=== PATIENT | female | born 1970 | race Caucasian/White ===

== ENCOUNTER 2019-01-01 21:30 | Inpatient (IN) | payer MEDICARE, MEDICAID ==
[~2019-01-01] VITALS: Ht 157.5 cm; Wt 70.0 kg
[2019-01-01 21:15] VITALS: BP 99/63
[2019-01-01] MEDS ORDERED: acetaminophen 325mg tablet PO PRN (23:40)
[2019-01-01] MEDS ORDERED: magnesium hydroxide 30ml (MOM) UD suspension PO PRN (23:40)
[2019-01-01] MEDS ORDERED: mag hydrox/Alum hydrox/simeth 30ml oral suspension PO PRN (23:40)
[2019-01-02] MEDS ORDERED: FENO145T38 PO (04:04)
[2019-01-02] MEDS ORDERED: GLIM1TAB46 PO (04:04)
[2019-01-02] MEDS ORDERED: LOSA50TA3 PO (04:04)
[2019-01-02] MEDS ORDERED: RISP2TAB3 PO (04:04)
[2019-01-02] MEDS ORDERED: ZIPR60CA2 PO (04:04)
[2019-01-02] MEDS ORDERED: CEPH-572 PO (04:07)
--- NOTE | 2019-01-02 04:25 | NUR ---
TUBERCULOSIS SPECIALIST NOTE: Legal hold: 5150 for GD. Dx: Psychosis NOS. ASSESSMENT: THIS SHIFT: Client was transferred from [facility] after presenting to [facility] behaving in a disorganized manner and making bizarre statements. The client was placed on a 5150 for GD. Client is homeless. It was reported that client has been off meds for three months. Client is 48 yo female who looks older than her stated age. She has poor hygiene, is disheveled with messy hair. Client was cooperative, but stated "I'm tired" and wanted to sleep. Client has a long mental health and substance use history (Meth and ETOH). Client stated, "I smoke cigarette butts when I can find them." She has been smoking for "ten years". Client ambulated to the unit at 2100 accompanied by [employer] ice cream truck driver. She changed into green scrubs and her belongings were inventoried by Con Roberts Clients clothing was washed and will be returned to client in am. The client is a poor historian and verbal answers conflicted with the medical record. After having a sandwich and chips client fell asleep. Client awoke once and briefly walked the hallway. She returned to bed and fell asleep without difficulty. Client was admitted for Psychosis NOS. She has a UTI which is being treated with Keflex 500 mg Tab PO TID. She did not c/o pain during urination or frequency. S/I, H/I: Responds to internal stimuli. A/VH: Hears voices. Delusional. Sleep: No issues during shift. (Awoke once) ADL's: Independent, needs prompting. Group attendance: N/A. Were meds taken: Ordered for 01/02/2019. Any med S/E: N/A. MENTAL STATUS EXAM: Appearance: Poor hygiene, body odor, messy hair, disheveled. Needs shower. Eye contact: Poor eye contact. Behavior: Tired and hugry. Speech: Clear. Mood: Stable. Affect: Blunted. Thought process: Non-linear, confused. Cognition: A/O X 3. Insight: Poor Judgment: Poor INTERVENTIONS: PRN's used: None. Therapeutic interventions: 1:1 therapeutic assessment, active listening, medication education, administration and monitoring for effects, Q15 min safety checks, therapeutic milieu and group therapy. [place] to unit. Restraints/seclusion/emergency medication: N/A. Justification of Continued Inpatient Treatment: Client needs to have meds adjusted and encouraged to be med compliant. Discover barriers to med compliance. Client is disorganized and unable to obtain food and housing. Client is homeless at this time but my be eligible to move into [facility] upon discharge.
--- NOTE | 2019-01-02 07:23 | NUR ---
Nursing Note: Pt's AM blood glucose not fasting level, pt drinking hot chocolate. Will continue to monitor.
[2019-01-02 07:38] VITALS: BP 118/75
[2019-01-02] MEDS: fenofibrate 145mg tablet PO SCH (07:56)
[2019-01-02] MEDS: glimepiride 1 MG tablet PO SCH (07:56)
[2019-01-02] MEDS: cephalexin 250mg capsule PO SCH ×2 (07:56→15:46)
[2019-01-02] MEDS ORDERED: losartan 50mg tablet PO SCH (08:00)
[2019-01-02] MEDS ORDERED: ziprasidone 20mg capsule PO SCH (08:00)
[2019-01-02] MEDS: losartan 50mg tablet PO SCH (08:01)
[2019-01-02] MEDS ORDERED: tuberculin, purif. prot. deriv. 5 units/0.1ml ID ONE (10:00)
--- NOTE | 2019-01-02 11:33 | NUR ---
DM consult: Pt hx dementia A1C 7.2 and not appropriate for ed at this time. Addendum: 01/02/19 at [address] Amended: Links added. Addendum: 01/02/19 at [address] Correction: DM consult: Pt admit w/ psychosis A1C 7.2 and not appropriate for ed at this time.
--- NOTE | 2019-01-02 11:59 | NUR ---
RN Progress Note: Legal hold: 5150 for GD. Dx: Psychosis NOS. Report received from ELSY Leger with use of SBAR. Why they are here: Client was transferred from [facility] after presenting to [facility] behaving in a disorganized manner and making bizarre statements. The client was placed on a 5150 for GD. Client is homeless. It was reported that client has been off meds for three months. Assessment: Client was sleeping at change of shift. Reports she slept well. Compliant with medication administration. Cooperative with assessment. Pt denies depression, anxiety, SI, and A/VH. Her appearance was disheveled and odorous. She napped during the morning and did not attend the AM group. Pt took shower in the AM. S/I, H/I: Pt denies A/VH: Pt denies Sleep: Napped ADL's: Independent, needs prompting. Group attendance: No AM group Were meds taken: Yes Any med S/E: N/A. MENTAL STATUS EXAM: Appearance: Disheveled, poor hygiene, odorous Eye contact: Indirect Behavior: Cooperative Speech: Normal rate and rhythm Mood: Appropriate Affect: Blunted. Thought process: Non-linear Cognition: A/O X 3. Insight: Poor Judgment: Poor INTERVENTIONS: PRN's used: None. Therapeutic interventions: 1:1 therapeutic assessment, active listening, medication education, administration and monitoring for effects, Q15 min safety checks, therapeutic milieu and group therapy. Restraints/seclusion/emergency medication: N/A. Justification of Continued Inpatient Treatment: Continued therapeutic support and medication management needed to provide stabilization, prevent decompensation, and decrease risk to patient and readmittance. Client is unable to formulate a plan for food, clothing and care home.
--- NOTE | 2019-01-02 12:29 | NUR ---
Nursing Note: PPD held at this time, pt states she [facility] [place]. The PPD site on her arm is circled and not induration is noted. Will seek further clarification on the pt's recent PPD test.
--- NOTE | 2019-01-02 16:59 | NUR ---
Aimee ALVAREZ reported that another pt came to her to tell her that pt had used marker on her face. Pt had used a red marker on her lips and stated, "It's lipstick." Markers removed from community room.
[2019-01-02 20:00] VITALS: BP 136/89
[2019-01-02] MEDS: risperiDONE 2mg tablet PO SCH (21:28)
[2019-01-02] MEDS: docusate sod 100mg capsule PO SCH (21:29)
[2019-01-02] MEDS: lactobacillus rhamnosus 10,000 MMU CELLS/CAPSULE PO SCH (21:29)
[2019-01-02] MEDS: acetaminophen 325mg tablet PO PRN (21:49)
[2019-01-03] MEDS: cephalexin 250mg capsule PO SCH ×3 (00:21→16:12)
--- NOTE | 2019-01-03 03:00 | NUR ---
RN Progress Note: Legal hold: 5150 for GD. Dx: Psychosis NOS. Report received from PADMINI Hanks with use of SBAR. Why they are here: Client was transferred from [facility] after presenting to U behaving in a disorganized manner and making bizarre statements. The client was placed on a 5150 for GD. Client is homeless. It was reported that client has been off meds for three months. Assessment What happened this shift: Pt was in group room at shift change. Pt was compliant with medication administration. Pt is A&O x2 was able to give name and , when asked two separate times if she knew where she was her was response was I am at the [facility] [place]. Pt knew she was in for an evaluation, but could not elaborate as to why "my social media intern knows." Pt s answers to questions are minimal. Pt denies depression, anxiety, SI and A/VH, but appeared to be responding to internal stimuli. This physician underwriter observed the pt looking up and laughing randomly. Pt c/o of low back pain and Tylenol was administered. HS blood glucose was 103. Pt was observed dancing around the group room by herself. S/I, H/I: None reported or observed A/VH: None reported or observed Sleep: See sleep assessment notation ADL's: Independent, needs prompting. Group attendance: control analyst, no group Were meds taken: Pt medication compliant Any med S/E: None reported or observed MENTAL STATUS EXAM: Appearance: Disheveled, poor hygiene, odorous Eye contact: Indirect Behavior: Cooperative Speech: Clear, monotone, minimal Mood: Pt reports "good" Affect: Flat Thought process: Non-linear Cognition: A/O X 2. Insight: Poor Judgment: Poor INTERVENTIONS: PRN's used: Tylenol Therapeutic interventions: 1:1 therapeutic assessment, active listening, medication education, administration and monitoring for effects, Q15 min safety checks, therapeutic milieu and group therapy. Restraints/seclusion/emergency medication: N/A Justification of Continued Inpatient Treatment: Continued therapeutic support and medication management needed to provide stabilization, prevent decompensation, and decrease risk to patient and readmittance. Client is unable to formulate a plan for food, clothing and usp.
[2019-01-03] MEDS: lactobacillus rhamnosus 10,000 MMU CELLS/CAPSULE PO SCH ×2 (07:39→21:55)
[2019-01-03] MEDS: glimepiride 1 MG tablet PO SCH (07:39)
[2019-01-03] MEDS: docusate sod 100mg capsule PO SCH ×2 (07:39→21:55)
[2019-01-03] MEDS: losartan 50mg tablet PO SCH (07:39)
[2019-01-03] MEDS: ziprasidone 20mg capsule PO SCH (07:40)
[2019-01-03 07:53] VITALS: BP 111/76
[2019-01-03] MEDS ORDERED: glimepiride 1 MG tablet PO SCH (08:00)
[2019-01-03] MEDS ORDERED: fenofibrate 145mg tablet PO SCH (08:00)
[2019-01-03] MEDS ORDERED: losartan 50mg tablet PO SCH (08:00)
[2019-01-03 08:19] LABS: CHOL/HDL RATIO 2.9 (0.00-4.99); CHOLESTEROL 146 MG/DL (0-200); HDL CHOLESTEROL 51 MG/DL (35-60); LDL CHOLESTEROL 78 MG/DL (50-100); TRIGLYCERIDES 83 MG/DL (20-135)
[2019-01-03] MEDS: fenofibrate 145mg tablet PO SCH (09:38)
--- NOTE | 2019-01-03 16:09 | NUR ---
NURSING PROGRESS NOTE: Legal hold: 5150 for GD. Report received from PADMINI Coleman with use of SBAR. Why they are here: Client was transferred from [facility] after presenting to [facility] behaving in a disorganized manner and making bizarre statements. The client was placed on a 5150 for GD. Client is homeless. It was reported that client has been off meds for three months. Assessment: What happened this shift: Patient appears to be sleeping at start of shift, eyes closed, RR even and unlabored. 1:1 assessment at bedside. Pt reports she is tired. She attended am group. Up for meals and snacks. S/I, H/I: Pt denies A/VH: Pt denies Sleep: Napped ADL's: independent, needs prompting. Group attendance: Yes Were meds taken: Yes Any med S/E: N/A. MENTAL STATUS EXAM: Appearance: Disheveled, did not shower today Eye contact: Indirect Behavior: Cooperative Speech: Normal rate and rhythm Mood: Appropriate Affect: Blunted. Thought process: disorganized Cognition: A/O X 3. Insight: Poor Judgment: Poor INTERVENTIONS: PRN's used: N/A Therapeutic interventions: 1:1 therapeutic communication and listening, administered medicine w/education and monitored for side effects, encouraged pt to shower and care for ADL's, Q 15 min monitoring for safety check. Restraints/seclusion/emergency medication: N/A. Justification of Continued Inpatient Treatment: Continued therapeutic support and medication management needed to provide stabilization, prevent decompensation, and decrease risk to patient and readmittance. Client is unable to formulate a plan for food, clothing and mcfp.
[2019-01-03 19:28] VITALS: BP 105/63
[2019-01-03] MEDS: risperiDONE 2mg tablet PO SCH (21:55)
[2019-01-04] MEDS: cephalexin 250mg capsule PO SCH ×2 (00:55→08:20)
[2019-01-04] MEDS: acetaminophen 325mg tablet PO PRN (01:14)
--- NOTE | 2019-01-04 02:57 | NUR ---
NURSING PROGRESS NOTE: Legal hold: 5150 for GD. Report received from PADMINI Alvarado with use of SBAR. Why they are here: Client was transferred from [facility] after presenting to U behaving in a disorganized manner and making bizarre statements. The client was placed on a 5150 for GD. Client is homeless. It was reported that client has been off meds for three months. Assessment: What happened this shift: Pt wandered in fernandez at start of shift. Came to group room for snack. Pleasant and cooperative. S/I, H/I: Pt denies A/VH: Pt denies Sleep: asleep at this time. ADL's: independent, needs prompting. Group attendance: Yes Were meds taken: Yes Any med S/E: N/A. MENTAL STATUS EXAM: Appearance: Disheveled, did not shower today. Bahman circles around eyes with felt pen. Eye contact: Indirect Behavior: Cooperative Speech: Normal rate and rhythm Mood: Appropriate Affect: Blunted. Thought process: disorganized Cognition: A/O X 3. Insight: Poor Judgment: Poor INTERVENTIONS: Therapeutic interventions: 1:1 therapeutic communication and listening, administered medicine w/education and monitored for side effects, encouraged pt to shower and care for ADL's, Q 15 min monitoring for safety check. PRN's used: Tylenol for back pain. Restraints/seclusion/emergency medication: N/A. Justification of Continued Inpatient Treatment: Continued therapeutic support and medication management needed to provide stabilization, prevent decompensation, and decrease risk to patient and readmittance. Client is unable to formulate a plan for food, clothing and correction.
[2019-01-04 07:39] VITALS: BP 110/70
[2019-01-04] MEDS: lactobacillus rhamnosus 10,000 MMU CELLS/CAPSULE PO SCH ×2 (08:20→20:26)
[2019-01-04] MEDS: ziprasidone 20mg capsule PO SCH (08:20)
[2019-01-04] MEDS: fenofibrate 145mg tablet PO SCH (08:20)
[2019-01-04] MEDS: glimepiride 1 MG tablet PO SCH (08:20)
[2019-01-04] MEDS: docusate sod 100mg capsule PO SCH ×2 (08:20→20:26)
[2019-01-04] MEDS: losartan 50mg tablet PO SCH (08:20)
--- NOTE | 2019-01-04 13:08 | NUR ---
NURSING PROGRESS NOTE: Legal hold: 5150 for GD. Report received from PADMINI Stephens with use of SBAR. Why they are here: Client was transferred from [facility] after presenting to [facility] behaving in a disorganized manner and making bizarre statements. The client was placed on a 5150 for GD. Client is homeless. It was reported that client has been off meds for three months. Assessment: What happened this shift: Pt in bed at start of shift. Eyes closed laying on back with her eyes closed. RR even and unlabored. Pt later seen drinking hot chocolate prior to having accu check done. This nurse provided education on her disease. Pt agreed to come to the nurses prior to getting her hot chocolate or coffee in the mornings for now on. Pt able to verbalize understanding of the importance of checking her blood sugar before meals. S/I, H/I: Pt denies A/VH: Pt denies Sleep: Naps in between activities. ADL's: independent, needs prompting. Group attendance: Yes Were meds taken: Yes Any med S/E: N/A. MENTAL STATUS EXAM: Appearance: Showered in the AM Eye contact: Indirect Behavior: Cooperative Speech: Normal rate and rhythm Mood: Appropriate Affect: Blunted. Thought process: disorganized Cognition: A/O X 3. Insight: Poor Judgment: Poor INTERVENTIONS: Therapeutic interventions: 1:1 therapeutic communication and listening, administered medicine w/education and monitored for side effects, encouraged pt to shower and care for ADL's, Q 15 min monitoring for safety check. PRN's used: N/A Restraints/seclusion/emergency medication: N/A. Justification of Continued Inpatient Treatment: Continued therapeutic support and medication management needed to provide stabilization, prevent decompensation, and decrease risk to patient and readmittance. Client is unable to formulate a plan for food, clothing and correction.
[2019-01-04] MEDS: cephalexin 500mg capsule PO SCH ×2 (16:39→23:53)
[2019-01-04 20:00] VITALS: BP 113/68
[2019-01-04] MEDS: risperiDONE 2mg tablet PO SCH (20:26)
[2019-01-04 22:07] VITALS: BP 113/68
--- NOTE | 2019-01-05 00:17 | NUR ---
NURSING PROGRESS NOTE: Legal hold: 5250 for GD Report received from PADMINI Tompkins with use of SBAR. Why they are here: Client was transferred from [facility] after presenting to U behaving in a disorganized manner and making bizarre statements. The client was placed on a 5150 for GD. Client is homeless. It was reported that client has been off meds for three months. Assessment: What happened this shift: Pt in bed at start of shift, stating, "yeah" when RN asked if she was tired. Pt minimal in responses, only offering "yeah" or "no". Pt denies AH but when signing the 5250 and the RN explained the court hearing process, the pt began to mutter under her breath "Now they want her to go to court, when she was going to get out", "Yes, they want her to go now. Yes that is how it is, I see". Rn inquired as to who she was talking to but the pt just blankly looked at RN then let out a burst of maniacal laughter; she stopped then got up and proceeded to group room. Pt was compliant with medications and assessment. She paced the halls x1 around 2315 then returned to bed to sleep. S/I, H/I: Denies A/VH: Denies, but observed to be responding to internal stimuli Sleep: See Charting ADL's: Independent, needs prompting Group attendance: Y - HS Snack Were meds taken: Y Any med S/E: None reported, None observed MENTAL STATUS EXAM: Appearance: Hair disheveled, wearing unit green scrubs and nonskid socks Eye contact: Intermittent Behavior: Pt sleeping or resting except to attend snack group; x1 pace the halls before returning to room Speech: Abrupt, Clear Mood: "Yeah" when asked how she is feeling Affect: Flat Thought process: Disorganized Cognition: A/O X 2 ( No to time and place) Insight: Poor Judgment: Poor INTERVENTIONS: Therapeutic interventions: 1:1 therapeutic communication and listening, administered medicine w/education and monitored for side effects, encouraged pt to shower and care for ADL's, Q 15 min monitoring for safety check. PRN's used: N/A Restraints/seclusion/emergency medication: N/A. Justification of Continued Inpatient Treatment: Continued therapeutic support and medication management needed to provide stabilization, prevent decompensation, and decrease risk to patient and readmittance. Client is unable to formulate a plan for food, clothing and mcfp. Addendum: 01/05/19 at 0344 by Nakia Marc RN Pt pacing the halls, stopping intermittently to inquire about her clothes. She returns to her room to sleep.
[2019-01-05] MEDS: glimepiride 1 MG tablet PO SCH (08:04)
[2019-01-05] MEDS: docusate sod 100mg capsule PO SCH ×2 (08:04→20:33)
[2019-01-05] MEDS: losartan 50mg tablet PO SCH (08:04)
[2019-01-05] MEDS: ziprasidone 20mg capsule PO SCH (08:04)
[2019-01-05] MEDS: lactobacillus rhamnosus 10,000 MMU CELLS/CAPSULE PO SCH ×2 (08:04→20:33)
[2019-01-05] MEDS: cephalexin 500mg capsule PO SCH ×2 (08:04→16:15)
[2019-01-05] MEDS: fenofibrate 145mg tablet PO SCH (08:05)
[2019-01-05 08:19] VITALS: BP 112/74
--- NOTE | 2019-01-05 15:43 | NUR ---
NURSING PROGRESS NOTE: Legal hold: 5250 for GD. Report received from PADMINI Yee with use of SBAR. Why they are here: Client was transferred from [facility] after presenting to [facility] behaving in a disorganized manner and making bizarre statements. The client was placed on a 5150 for GD. Client is homeless. It was reported that client has been off meds for three months. Assessment: What happened this shift: Pt sleeping at change of shift. Compliant with medication administration. Cooperative with 1:1 assessment. Pt denied depression, anxiety, and SI. When asked about auditiory hallucinations, she said, "Just what's all around." Blood glucose monitored before meals, pt had hot chocolate prior to 1200 glucose check. Pt did not attend groups. S/I, H/I: Denies A/VH: Denied, but then said, "Just what's all around." Sleep: Napped ADL's: independent, with prompting. Group attendance: No Were meds taken: Yes Any med S/E: N/A. MENTAL STATUS EXAM: Appearance: disheveled Eye contact: Indirect Behavior: Pleasant and cooperative Speech: Normal rate and rhythm Mood: Calm Affect: Blunted Thought process: Disorganized Cognition: A/O X 3. Insight: Poor Judgment: Poor PRN's used: N/A Therapeutic interventions: Provided 1:1 therapeutic communication and active listening, administered medicine w/education and monitored for side effects, encouraged attention to ADL's, Q 15 min monitoring for safety check, maintained therapeutic milieu. Restraints/seclusion/emergency medication: N/A. Justification of Continued Inpatient Treatment: Continued therapeutic support and medication management needed to provide stabilization, prevent decompensation, and decrease risk to patient and readmittance. Client is unable to formulate a plan for food, clothing and retirement.
[2019-01-05] MEDS ORDERED: paliperidone palmitate inj 234 MG/1.5 ML SYRINGE IM ONE (19:05)
[2019-01-05] MEDS: risperiDONE 2mg tablet PO SCH (20:33)
[2019-01-05] MEDS: traZODone 50mg tablet PO SCH (20:34)
[2019-01-05 20:35] VITALS: BP 107/64
--- NOTE | 2019-01-05 23:05 | NUR ---
NURSING PROGRESS NOTE: Legal hold: 5250 for GD. Report received from PADMINI Mayo with use of SBAR. Why they are here: Client was transferred from [facility] after presenting to U behaving in a disorganized manner and making bizarre statements. The client was placed on a 5150 for GD. Client is homeless. It was reported that client has been off meds for three months. Assessment: What happened this shift: Pt sleeping at change of shift; slept most of shift except to pace the halls a few times. Invega IM injection administered at 1999. Pt compliant with all medications. Bathroom cleaned by rouge presser due to Pt soiling around the toilet. Pt continues to deny all symtpoms althought she appears to be responding to internal stimuli. S/I, H/I: Denies A/VH: Denied, but appears to respond to internal stimuli Sleep: See Charting ADL's: Independent, with prompting. Group attendance: Y - HS Snack Were meds taken: Y Any med S/E: None reported, None observed MENTAL STATUS EXAM: Appearance: disheveled but clean, wearing green unit scrubs and nonskid socks Eye contact: Indirect Behavior: Cooperative; slept in bed most of shift with occasional pacing of the halls Speech: Abrupt Mood: Calm Affect: Flat Thought process: Disorganized Cognition: A/O X 3. Insight: Poor Judgment: Poor PRN's used: Trazadone 100mg for sleep Therapeutic interventions: Provided 1:1 therapeutic communication and active listening, administered medicine w/education and monitored for side effects, encouraged attention to ADL's, Q 15 min monitoring for safety check, maintained therapeutic milieu. Restraints/seclusion/emergency medication: N/A. Justification of Continued Inpatient Treatment: Continued therapeutic support and medication management needed to provide stabilization, prevent decompensation, and decrease risk to patient and readmittance. Client is unable to formulate a plan for food, clothing and senior living.
[2019-01-06 07:38] VITALS: BP 100/60
[2019-01-06] MEDS: losartan 50mg tablet PO SCH (08:03)
[2019-01-06] MEDS: lactobacillus rhamnosus 10,000 MMU CELLS/CAPSULE PO SCH ×2 (08:03→21:07)
[2019-01-06] MEDS: cephalexin 500mg capsule PO SCH ×3 (08:03→16:54)
[2019-01-06] MEDS: fenofibrate 145mg tablet PO SCH (08:03)
[2019-01-06] MEDS: ziprasidone 20mg capsule PO SCH (08:03)
[2019-01-06] MEDS: docusate sod 100mg capsule PO SCH ×2 (08:03→21:07)
[2019-01-06] MEDS: glimepiride 1 MG tablet PO SCH (08:03)
--- NOTE | 2019-01-06 17:25 | NUR ---
NURSING PROGRESS NOTE: Legal hold: 5250 for GD. Report received from PADMINI Rogers with use of SBAR. Why they are here: Client was transferred from [facility] after presenting to U behaving in a disorganized manner and making bizarre statements. The client was placed on a 5150 for GD. Client is homeless. It was reported that client has been off meds for three months. Assessment: What happened this shift: Pt sleeping at change of shift. Compliant with medication administration. Cooperative with 1:1 assessment. Pt denied depression, anxiety, and SI. When asked about auditiory hallucinations, she said, "Just what's all around." Blood glucose monitored before meals, pt had hot chocolate prior to 1200 glucose check. Pt did not attend groups. Pt is confused and disoriented as well as talking to unseen others. S/I, H/I: Denies A/VH: Denied, but then said, "Just what's all around." Sleep: Napped ADL's: independent, with prompting. Group attendance: No Were meds taken: Yes Any med S/E: N/A. MENTAL STATUS EXAM: Appearance: disheveled Eye contact: Indirect Behavior: Pleasant and cooperative Speech: Normal rate and rhythm Mood: Calm Affect: Blunted Thought process: Disorganized Cognition: A/O X 3. Insight: Poor Judgment: Poor PRN's used: N/A Therapeutic interventions: Provided 1:1 therapeutic communication and active listening, administered medicine w/education and monitored for side effects, encouraged attention to ADL's, Q 15 min monitoring for safety check, maintained therapeutic milieu. Restraints/seclusion/emergency medication: N/A. Justification of Continued Inpatient Treatment: Pt requires continual therapeutic support and medication management needed to provide stabilization, prevent decompensation, and decrease risk to patient and readmittance. Client is unable to formulate a plan for food, clothing and halfway.
[2019-01-06 20:00] VITALS: BP 118/68
[2019-01-06] MEDS ORDERED: risperiDONE 2mg tablet PO SCH (21:00)
[2019-01-06] MEDS: traZODone 50mg tablet PO SCH (21:07)
[2019-01-07] MEDS: cephalexin 500mg capsule PO SCH ×3 (00:12→16:31)
--- NOTE | 2019-01-07 00:28 | NUR ---
NURSING PROGRESS NOTE: Legal hold: 5250 for GD. Report received from PADMINI Tompkins with use of SBAR. Why they are here: Client was transferred from [facility] after presenting to U behaving in a disorganized manner and making bizarre statements. The client was placed on a 5150 for GD. Client is homeless. It was reported that client has been off meds for three months. Assessment: What happened this shift: Pt sleeping at change of shift; slept most of shift except to pace the halls a few times. She periodically gets up from her bed soaks her hair with water, then either paces the fernandez or lays back down. She is moved to nugent new room this evening, and enjoys the window in her new room to look out. She is compliant with all her evening medications, and when asked denies any side effects to her medications. S/I, H/I: Denies A/VH: Denied, but appears to respond to internal stimuli Sleep: Currently sleeping, see sleep assessment ADL's: Independent, with prompting. Group attendance: No HS group this shift Were meds taken: Y Any med S/E: None reported, None observed MENTAL STATUS EXAM: Appearance: Disheveled, unkempt, used markers as make up. Eye contact: Indirect Behavior: Cooperative; slept in bed most of shift with occasional pacing of the halls Speech: Normal volume, rhythm Mood: Calm Affect: Flat Thought process: Disorganized Cognition: A/O X 3. Insight: Poor Judgment: Poor PRN's used: Trazadone 100mg for sleep Therapeutic interventions: Provided 1:1 therapeutic communication and active listening, administered medicine w/education and monitored for side effects, encouraged attention to ADL's, Q 15 min monitoring for safety check, maintained therapeutic milieu. Restraints/seclusion/emergency medication: N/A. Justification of Continued Inpatient Treatment: Continued therapeutic support and medication management needed to provide stabilization, prevent decompensation, and decrease risk to patient and readmittance. Client is unable to formulate a plan for food, clothing and senior care.
[2019-01-07 07:55] VITALS: BP 104/65
[2019-01-07] MEDS: lactobacillus rhamnosus 10,000 MMU CELLS/CAPSULE PO SCH ×2 (08:09→20:53)
[2019-01-07] MEDS: docusate sod 100mg capsule PO SCH ×2 (08:09→20:53)
[2019-01-07] MEDS: losartan 50mg tablet PO SCH (08:09)
[2019-01-07] MEDS: glimepiride 1 MG tablet PO SCH (08:09)
[2019-01-07] MEDS: ziprasidone 20mg capsule PO SCH (08:10)
[2019-01-07] MEDS: fenofibrate 145mg tablet PO SCH (08:10)
--- NOTE | 2019-01-07 12:10 | NUR ---
Initial: Pt admit to U for psychosis. Per physical assessment pt A/O x2, DM ed remains not appropriate at this time. Pt currently on a CHO controlled diet with documented PO intake 100% meeting nutrient needs. LBM 01/06. No edema or wounds. No nutrition diagnosis at this time. Will continue to follow. Recommendations: 1) Continue with CHO controlled diet 2) Wt per rx Addendum: 01/07/19 at [address] Amended: Links added.
--- NOTE | 2019-01-07 12:54 | NUR ---
NURSING PROGRESS NOTE: Legal hold: 5250 for GD. Report received from PADMINI Sexton with use of SBAR. Why they are here: Client was transferred from [facility] after presenting to [facility] behaving in a disorganized manner and making bizarre statements. The client was placed on a 5150 for GD. Client is homeless. It was reported that client has been off meds for three months. Assessment: What happened this shift: The patient was awake at change of shift, up in group room talking with others. Denies suicidal thoughts or hallucinations. Confused and disoriented. Cannot state why she is here. She would like to wear her own clothes but does not know what has happened to her clothes or how she got here. She gives detailed "beauty" advice to nurse. She is pleasantly confused and cooperative, eating well and med compliant. S/I, H/I: Denies A/VH: Denied, but appears to respond to internal stimuli Sleep: Naps ADL's: Independent, with prompting. Group attendance: Yes Were meds taken: Yes Any med S/E: None reported, None observed MENTAL STATUS EXAM: Appearance: Disheveled, unkempt, used markers as make up. Eye contact: Direct Behavior: Cooperative Speech: Normal volume, rhythm Mood: Calm Affect: Smiling Thought process: Disorganized Cognition: Alert Insight: Poor Judgment: Poor PRN's used: None Therapeutic interventions: Provided 1:1 therapeutic communication and active listening, administered medicine w/education and monitored for side effects, encouraged attention to ADL's, Q 15 min monitoring for safety check, maintained therapeutic milieu. Restraints/seclusion/emergency medication: N/A. Justification of Continued Inpatient Treatment: Continued therapeutic support and medication management needed to provide stabilization, prevent decompensation, and decrease risk to patient and readmittance. Client is unable to formulate a plan for food, clothing and custodial.
[2019-01-07 19:00] VITALS: BP 93/58
[2019-01-07] MEDS: traZODone 50mg tablet PO SCH (20:53)
[2019-01-07] MEDS: risperiDONE 2mg tablet PO SCH (20:53)
--- NOTE | 2019-01-07 23:26 | NUR ---
NURSING PROGRESS NOTE: Legal hold: 5250 for GD. Report received from PADMINI Stockton with use of SBAR. Why they are here: Client was transferred from [facility] after presenting to [facility] behaving in a disorganized manner and making bizarre statements. The client was placed on a 5150 for GD. Client is homeless. It was reported that client has been off meds for three months. Assessment: What happened this shift: Pt isolates in her room majority of shift. She answers questions when spoken to but does not converse freely. She avoids eye contact and stares past group underwriter. When asked how her day was she responds," good, I went to group, art group." When asked if she was depressed or suicidal she responds, "nope." After her HS medications she paces the halls a few times with a pillow case on her head that she wore like a hat. S/I, H/I: Denies A/VH: Denies Sleep: see sleep assessment notation ADL's: Independent, with prompting. Group attendance: No HS group this shift Were meds taken: Yes Any med S/E: None reported, None observed MENTAL STATUS EXAM: Appearance: Disheveled, unkempt Eye contact: avoids Behavior: occasional pacing of the halls, isolates in room Speech: flat, sparse Mood: congruent w/ affect Affect: Flat Thought process: Disorganized Cognition: A/O X 3. Insight: Poor Judgment: Poor PRN's used: Trazadone 100mg for sleep Therapeutic interventions: Provided 1:1 therapeutic communication and active listening, administered medicine w/education and monitored for side effects, encouraged attention to ADL's, Q 15 min monitoring for safety check, maintained therapeutic milieu. Restraints/seclusion/emergency medication: N/A. Justification of Continued Inpatient Treatment: Continued therapeutic support and medication management needed to provide stabilization, prevent decompensation, and decrease risk to patient and readmittance. Client is unable to formulate a plan for food, clothing and assisted.
[2019-01-08] MEDS: cephalexin 500mg capsule PO SCH ×3 (00:09→16:31)
[2019-01-08 08:00] VITALS: BP 106/65
[2019-01-08] MEDS: ziprasidone 20mg capsule PO SCH (08:22)
[2019-01-08] MEDS: docusate sod 100mg capsule PO SCH ×2 (08:22→20:40)
[2019-01-08] MEDS: lactobacillus rhamnosus 10,000 MMU CELLS/CAPSULE PO SCH ×2 (08:22→20:40)
[2019-01-08] MEDS: fenofibrate 145mg tablet PO SCH (08:22)
[2019-01-08] MEDS: glimepiride 1 MG tablet PO SCH (08:23)
[2019-01-08] MEDS: losartan 50mg tablet PO SCH (08:23)
--- NOTE | 2019-01-08 08:44 | NUR ---
DISCHARGE PLANNING: Phoned pt's Shirt Presser, Sam Yanira, to update him on pt's progress and notify him that pt's doctor believes she maybe ready for interview w/ Marivel Smith on Friday01/11/19. Invited him to CB to discuss in more detail. Jenny Herndon, ACSW
--- NOTE | 2019-01-08 15:11 | NUR ---
NURSING PROGRESS NOTE: Legal hold: 5250 for GD. Report received from PADMINI Sexton with use of SBAR. Why they are here: Client was transferred from [facility] after presenting to [facility] behaving in a disorganized manner and making bizarre statements. The client was placed on a 5150 for GD. Client is homeless. It was reported that client has been off meds for three months. Assessment: What happened this shift: The patient was awake at change of shift, up in group room talking with others. Denies suicidal thoughts or hallucinations. Confused and disoriented. Cannot state why she is here. During court hearing yesterday stated she still has an apartment and a place to "go home to in [place]", she still today does not understand she is homeless. Naps frequently during the day, Attends groups and meals and is pleasantly confused and cooperative, eating well and med compliant. S/I, H/I: Denies A/VH: Denied, but appears to respond to internal stimuli Sleep: Naps ADL's: Independent, with prompting. Group attendance: Yes Were meds taken: Yes Any med S/E: None reported, None observed MENTAL STATUS EXAM: Appearance: Disheveled, unkempt, used markers as make up. Eye contact: Direct Behavior: Cooperative Speech: Normal volume, rhythm Mood: Calm Affect: Smiling Thought process: Disorganized Cognition: Alert Insight: Poor Judgment: Poor PRN's used: None Therapeutic interventions: Provided 1:1 therapeutic communication and active listening, administered medicine w/education and monitored for side effects, encouraged attention to ADL's, Q 15 min monitoring for safety check, maintained therapeutic milieu. Restraints/seclusion/emergency medication: N/A. Justification of Continued Inpatient Treatment: Continued therapeutic support and medication management needed to provide stabilization, prevent decompensation, and decrease risk to patient and readmittance. Client is unable to formulate a plan for food, clothing and fpc.
[2019-01-08] MEDS: risperiDONE 2mg tablet PO SCH (20:40)
[2019-01-08] MEDS: traZODone 50mg tablet PO SCH (20:40)
[2019-01-08 20:47] VITALS: BP 83/44
[2019-01-08 20:49] VITALS: BP 97/55
[2019-01-09] MEDS: cephalexin 500mg capsule PO SCH ×4 (00:18→23:43)
--- NOTE | 2019-01-09 00:21 | NUR ---
NURSING PROGRESS NOTE: Legal hold: 5250 for GD. Report received from PADMINI Stockton with use of SBAR. Why they are here: Client was transferred from [facility] after presenting to U behaving in a disorganized manner and making bizarre statements. The client was placed on a 5150 for GD. Client is homeless. It was reported that client has been off meds for three months. Assessment: What happened this shift: Pt walks about the unit and watches TV in the rec room with peers. She requests clothing from the clothing closet because she has minimal, and has been wearing green scrubs. She picks out shirts and 2 pants/shorts and changes into them immediately. Her affect is very flat throughout most activities, eating, watching Tv, or talking. She generally keeps the same expression, not happy or sad. She denies feeling suicidal or depressed. S/I, H/I: Denies A/VH: Denies Sleep: see sleep assessment notation ADL's: Independent, with prompting. Group attendance: No HS group this shift Were meds taken: Yes Any med S/E: None reported, None observed MENTAL STATUS EXAM: Appearance: changed into clothing she picked out, hair is still unkempt, remnants of marker on her face from trying to put on eyeliner. Eye contact: fair Behavior: occasionally walks the halls and watches TV in rec room Speech: flat, sparse Mood: congruent w/ affect Affect: Flat Thought process: Disorganized Cognition: A/O X 3. Insight: Poor Judgment: Poor PRN's used: Trazadone 100mg for sleep Therapeutic interventions: Provided 1:1 therapeutic communication and active listening, administered medicine w/education and monitored for side effects, encouraged attention to ADL's, Q 15 min monitoring for safety check, maintained therapeutic milieu. Restraints/seclusion/emergency medication: N/A. Justification of Continued Inpatient Treatment: Continued therapeutic support and medication management needed to provide stabilization, prevent decompensation, and decrease risk to patient and readmittance. Client is unable to formulate a plan for food, clothing and correction.
[2019-01-09 08:00] VITALS: BP 104/69
[2019-01-09] MEDS: lactobacillus rhamnosus 10,000 MMU CELLS/CAPSULE PO SCH ×2 (08:09→20:57)
[2019-01-09] MEDS: docusate sod 100mg capsule PO SCH ×2 (08:09→20:57)
[2019-01-09] MEDS: ziprasidone 20mg capsule PO SCH (08:10)
[2019-01-09] MEDS: glimepiride 1 MG tablet PO SCH (08:10)
[2019-01-09] MEDS: losartan 50mg tablet PO SCH (08:10)
[2019-01-09] MEDS: fenofibrate 145mg tablet PO SCH (08:10)
--- NOTE | 2019-01-09 12:45 | NUR ---
NURSING PROGRESS NOTE: Legal hold: 5250 for GD. Report received from PADMINI Brown with use of SBAR. Why they are here: Client was transferred from [facility] after presenting to [facility] behaving in a disorganized manner and making bizarre statements. The client was placed on a 5150 for GD. Client is homeless. It was reported that client has been off meds for three months. Assessment: What happened this shift: The patient was awake at change of shift, up in group room talking with others. Denies suicidal thoughts or hallucinations. Confused and disoriented. States she is here to "get better" so "I can go home." Naps frequently during the day. Excited to have lipstick donated to her and used tube appropriately only at the lips and was smiling and happy about having it. Denies suicidal thoughts or hallucinations. Attends groups and meals and is pleasantly confused and cooperative, eating well and med compliant. S/I, H/I: Denies A/VH: Denied, but appears to respond to internal stimuli Sleep: Naps ADL's: Independent, with prompting. Group attendance: Yes Were meds taken: Yes Any med S/E: None reported, None observed MENTAL STATUS EXAM: Appearance: disheveled Eye contact: Direct Behavior: Cooperative Speech: Normal volume, rhythm Mood: Calm Affect: Smiling Thought process: Disorganized Cognition: Alert Insight: Poor Judgment: Poor PRN's used: None Therapeutic interventions: Provided 1:1 therapeutic communication and active listening, administered medicine w/education and monitored for side effects, encouraged attention to ADL's, Q 15 min monitoring for safety check, maintained therapeutic milieu. Restraints/seclusion/emergency medication: N/A. Justification of Continued Inpatient Treatment: Continued therapeutic support and medication management needed to provide stabilization, prevent decompensation, and decrease risk to patient and readmittance. Client is unable to formulate a plan for food, clothing and penitentiary.
[2019-01-09] MEDS ORDERED: paliperidone palmitate inj 234 MG/1.5 ML SYRINGE IM ONE (15:00)
[2019-01-09 20:00] VITALS: BP 109/69
[2019-01-09] MEDS: traZODone 50mg tablet PO SCH (20:57)
[2019-01-09] MEDS: risperiDONE 2mg tablet PO SCH (20:57)
--- NOTE | 2019-01-09 23:09 | NUR ---
NURSING PROGRESS NOTE: Legal hold: 5250 for GD. Report received from PADMINI Stockton with use of SBAR. Why they are here: Client was transferred from [facility] after presenting to U behaving in a disorganized manner and making bizarre statements. The client was placed on a 5150 for GD. Client is homeless. It was reported that client has been off meds for three months. Assessment: What happened this shift: Pt walks about the unit with a flat expression or watches TV. She has lipstick on her lips, and around her eyes like eye shadow. When asked how her day was she responded, "pretty good." She states "there's not a whole lot to do in here." Adjuster Leader asks what she likes to do outside of the hospital. "I like to watch TV and movies, hang out with friends and my ." She denies any suicidal ideation, AH/ VH. S/I, H/I: Denies A/VH: Denies Sleep: see sleep assessment notation ADL's: Independent, with prompting. Group attendance: No HS group this shift Were meds taken: Yes Any med S/E: None reported, None observed MENTAL STATUS EXAM: Appearance: changed into clothing she picked out, hair is still unkempt Eye contact: fair Behavior: occasionally walks the halls and watches TV in rec room Speech: flat, sparse Mood: congruent w/ affect Affect: Flat Thought process: Disorganized Cognition: A/O X 3. Insight: Poor Judgment: Poor PRN's used: Trazadone 100mg for sleep Therapeutic interventions: Provided 1:1 therapeutic communication and active listening, administered medicine w/education and monitored for side effects, encouraged attention to ADL's, Q 15 min monitoring for safety check, maintained therapeutic milieu. Restraints/seclusion/emergency medication: N/A. Justification of Continued Inpatient Treatment: Continued therapeutic support and medication management needed to provide stabilization, prevent decompensation, and decrease risk to patient and readmittance. Client is unable to formulate a plan for food, clothing and senior living.
[2019-01-10] MEDS: docusate sod 100mg capsule PO SCH ×2 (07:58→20:19)
[2019-01-10] MEDS: cephalexin 500mg capsule PO SCH ×2 (07:58→18:40)
[2019-01-10] MEDS: lactobacillus rhamnosus 10,000 MMU CELLS/CAPSULE PO SCH ×2 (07:58→20:19)
[2019-01-10] MEDS: fenofibrate 145mg tablet PO SCH (07:58)
[2019-01-10] MEDS: glimepiride 1 MG tablet PO SCH (07:59)
[2019-01-10 08:00] VITALS: BP 90/56
[2019-01-10] MEDS ORDERED: ziprasidone 20mg capsule PO SCH (08:00)
[2019-01-10] MEDS: losartan 50mg tablet PO SCH (08:00)
[2019-01-10] MEDS: ziprasidone 20mg capsule PO SCH (08:08)
--- NOTE | 2019-01-10 13:50 | NUR ---
NURSING PROGRESS NOTE: Legal hold: 5250 for GD. Report received from ELSY Brown with use of SBAR. Why they are here: Client was transferred from [facility] after presenting to U behaving in a disorganized manner and making bizarre statements. The client was placed on a 5150 for GD. Client is homeless. It was reported that client has been off meds for three months. Assessment: What happened this shift: Upon assuming care of pt she was awake watching television pleasantly with other patients. Pt had lipstick on her lips, cheeks, eye lids, and eyebrows, and wearing unusual modes of dress with martin pants underneath martin shorts. Pt was agreeable with our 1:1 assessment and had a very pleasant demeanor during most of our interactions throughout the day. Denies any SI or HI and was cooperative with staff and group attendance. Pt spent most of the day with other patients and walking around, she was very excited about her lipstick and put more on her face throughout the day. Pt had a difficult time staying on track with topic of conversation and appeared at times to be internally preoccupied. She also asked me multiple times if I liked her makeup and would laughed inappropriately at times during our conversations. S/I, H/I: Denies A/VH: Denied, but appears to respond to internal stimuli Sleep: none ADL's: Independent, with prompting. Group attendance: Yes Were meds taken: Yes Any med S/E: None reported, None observed MENTAL STATUS EXAM: Appearance: disheveled Eye contact: Direct Behavior: Cooperative Speech: Normal volume, rhythm Mood: Calm Affect: Smiling Thought process: Disorganized Cognition: Alert Insight: Poor Judgment: Poor PRN's used: None Therapeutic interventions: Provided 1:1 therapeutic communication and active listening, administered medicine w/education and monitored for side effects, encouraged attention to ADL's, Q 15 min monitoring for safety check, maintained therapeutic milieu. Restraints/seclusion/emergency medication: N/A. Justification of Continued Inpatient Treatment: Continued therapeutic support and medication management needed to provide stabilization, prevent decompensation, and decrease risk to patient and readmittance. Client is unable to formulate a plan for food, clothing and chcf.
[2019-01-10 19:51] VITALS: BP 98/58
[2019-01-10] MEDS: traZODone 50mg tablet PO SCH (20:18)
[2019-01-10] MEDS: risperiDONE 2mg tablet PO SCH (20:19)
--- NOTE | 2019-01-10 20:57 | NUR ---
NURSING PROGRESS NOTE: Legal hold: 5250 for GD. Report received from PADMINI White with use of SBAR. Why they are here: Client was transferred from [facility] after presenting to [facility] behaving in a disorganized manner and making bizarre statements. The client was placed on a 5150 for GD. Client is homeless. It was reported that client has been off meds for three months. Assessment: What happened this shift: Pt is asleep at shift change, but woke up shortly after want sat in the community room staring at a wall, with no expression. She had lipstick on her lips, around her eyes, and in her hair. She is wearing a pair of jeans with a pair of martin shorts overtop. Pt declines a shower. She denies any suicidal ideation, AH/ VH. S/I, H/I: Denies A/VH: Denies Sleep: see sleep assessment notation ADL's: Independent, with prompting. Group attendance: No HS group this shift Were meds taken: Yes Any med S/E: None reported, None observed MENTAL STATUS EXAM: Appearance: She had lipstick on her lips, around her eyes, and in her hair. She is wearing a pair of jeans with a pair of martin shorts overtop Eye contact: fair Behavior: occasionally walks the halls Speech: flat, sparse Mood: congruent w/ affect Affect: Flat Thought process: Disorganized Cognition: A/O X 3. Insight: Poor Judgment: Poor PRN's used: Trazadone 100mg for sleep Therapeutic interventions: Provided 1:1 therapeutic communication and active listening, administered medicine w/education and monitored for side effects, encouraged attention to ADL's, Q 15 min monitoring for safety check, maintained therapeutic milieu. Restraints/seclusion/emergency medication: N/A. Justification of Continued Inpatient Treatment: Continued therapeutic support and medication management needed to provide stabilization, prevent decompensation, and decrease risk to patient and readmittance. Client is unable to formulate a plan for food, clothing and longterm.
[2019-01-11] MEDS: cephalexin 500mg capsule PO SCH ×2 (01:34→07:32)
[2019-01-11] MEDS: docusate sod 100mg capsule PO SCH ×2 (07:32→21:20)
[2019-01-11] MEDS: glimepiride 1 MG tablet PO SCH (07:32)
[2019-01-11] MEDS: lactobacillus rhamnosus 10,000 MMU CELLS/CAPSULE PO SCH ×2 (07:33→21:20)
[2019-01-11] MEDS: ziprasidone 20mg capsule PO SCH (07:33)
[2019-01-11] MEDS: losartan 50mg tablet PO SCH (07:33)
[2019-01-11 08:00] VITALS: BP 101/65
[2019-01-11] MEDS: fenofibrate 145mg tablet PO SCH (08:04)
--- NOTE | 2019-01-11 12:57 | NUR ---
1:1 DISCHARGE PLANNING SW attempted to contact [facility] at [phone] regarding pt case management services and [facility] interview status. EDVIN made TC to [facility] at [phone], to learn of interview status. EDVIN provided w/ Parisa Schuler [facility] cell number at [phone]. EDVIN made TC to [facility] at [phone], who reports there are no available beds at [facility] and no referral was made. EDVIN contacted [facility] at [phone] (Alex), who reports [facility] is the only unit to make referrals to [facility] and Sam would have been unable to per policy. Alex read through discharge binder for notes regarding pt updates and discharge planning, reporting discharge planning did not occur through [facility], as required. Maria Guadalupe sent ELIZABETH for [facility] and [facility] discharge planning. EDVIN Cowart and Iza. KEVIN Duarte
--- NOTE | 2019-01-11 14:46 | NUR ---
Addition to note: EDVIN Cowart and EDVIN Couch completed ELIZABETH with pt, then faxed and emailed scanned copy of ELIZABETH to TCT. EDVIN Cowart informed [facility] that pt would likely be ready for discharge w/in 24 hours so [facility] placement was of urgent status. KEVIN Duarte
[2019-01-11] MEDS ORDERED: paliperidone palmitate 156 mg/ml inj.**IM only IM ONE (17:05)
--- NOTE | 2019-01-11 17:55 | NUR ---
NURSING PROGRESS NOTE: Legal hold: 5250 for GD. Report received from PADMINI White with use of SBAR. Why they are here: Client was transferred from [facility] after presenting to U behaving in a disorganized manner and making bizarre statements. The client was placed on a 5150 for GD. Client is homeless. It was reported that client has been off meds for three months. Assessment: What happened this shift: Pt. up at beginning of shift. Pt. cooperative and pleasent, pt. at breakfast and took medications. BG was 130 this AM. Pt. reports that she is waiting to see if she will get accepted to a homeless usp. Pt. attends groups, but is isolative to room during the day time. Pt. states she feels tired. Pt. eats all meals and snacks. Pt. denies SI/HI, A/V H. RN contacted by Pharmacy reporting that pt. recieved x2 Cowart sustaina injections, one on the and another on the , pt. shows no signs & symptoms of toxicity except for fatigue, RN informed MICHELL Lin, will continue to monitor. S/I, H/I: Denies A/VH: Denies Sleep: see sleep assessment notation ADL's: Independent, with prompting. Group attendance: Yes Were meds taken: Yes Any med S/E: Denies. MENTAL STATUS EXAM: Appearance: She had lipstick on her lips, around her eyes. Pt. is wearing shorts over her head. Eye contact: fair Behavior: occasionally walks the halls Speech: flat, sparse Mood: congruent w/ affect Affect: Flat Thought process: Disorganized, thought blocking. Thought content: Perseverates on her discharge. Cognition: A/O X 3. Insight: Poor Judgment: Poor PRN's used: N Therapeutic interventions: Provided 1:1 therapeutic communication and active listening, administered medicine w/education and monitored for side effects, encouraged attention to ADL's, Q 15 min monitoring for safety check, maintained therapeutic milieu. Restraints/seclusion/emergency medication: N/A. Justification of Continued Inpatient Treatment: Continued therapeutic support and medication management needed to provide stabilization, prevent decompensation, and decrease risk to patient and readmittance. Client is unable to formulate a plan for food, clothing and usp.
[2019-01-11 19:00] VITALS: BP 95/52
[2019-01-11] MEDS: risperiDONE 2mg tablet PO SCH (21:20)
[2019-01-11] MEDS: traZODone 50mg tablet PO SCH (21:20)
--- NOTE | 2019-01-12 00:47 | NUR ---
NURSING PROGRESS NOTE: Legal hold: 5250 for GD. Report received from PADMINI Stockton with use of SBAR. Why they are here: Client was transferred from [facility] after presenting to U behaving in a disorganized manner and making bizarre statements. The client was placed on a 5150 for GD. Client is homeless. It was reported that client has been off meds for three months. Assessment: What happened this shift: Pt watches TV in the community room and eats snacks. She is pleasant and med compliant. She denies any suicidal ideation, AH/ VH. S/I, H/I: Denies A/VH: Denies Sleep: see sleep assessment notation ADL's: Independent, with prompting. Group attendance: No HS group this shift Were meds taken: Yes Any med S/E: None reported, None observed MENTAL STATUS EXAM: Appearance: changed into clothing she picked out, hair is still unkempt Eye contact: fair Behavior: occasionally walks the halls and watches TV in rec room Speech: flat, sparse Mood: congruent w/ affect Affect: Flat Thought process: Disorganized Cognition: A/O X 3. Insight: Poor Judgment: Poor PRN's used: Trazadone 100mg for sleep Therapeutic interventions: Provided 1:1 therapeutic communication and active listening, administered medicine w/education and monitored for side effects, encouraged attention to ADL's, Q 15 min monitoring for safety check, maintained therapeutic milieu. Restraints/seclusion/emergency medication: N/A. Justification of Continued Inpatient Treatment: Continued therapeutic support and medication management needed to provide stabilization, prevent decompensation, and decrease risk to patient and readmittance. Client is unable to formulate a plan for food, clothing and [facility].
[2019-01-12 07:29] VITALS: BP 95/52
--- NOTE | 2019-01-12 08:06 | NUR ---
DISCHARGE PLANNING: Silver from [employer] [facility] phoned and LM that pt can return to the [facility]. Return call to Silver discuss pt D/C and transportation, LM. LING Chau Addendum: 01/12/19 at 0903 by Jenny FLORES Spoke w/ Saray @ [employer] [facility] and she will will work w/ us to arrange D/C -transportation when we have a definitive D/C date. LING Chau Addendum: 01/12/19 at 1052 by Jenny FLORES Sam, Pt's comp field case manager from [facility] returned my call from Friday, RONNIE inquiring about pt's upcoming D/C. I ALIZE and RONNIE, LING Chau Addendum: 01/12/19 at 1136 by Jenny Herndon SS Phoned Saray [employer] [facility] to update pt will D/C tomorrow 01/13/2019. Transportation is arranged and they will P/U pt at 1:30PM. They requested prescriptions be sent w/pt and recycle driver will stop to P/U. LING Chau Addendum: 01/12/19 at 1502 by Jenny FLORES MEDICATION UPDATE: Sam requested medications be called into [facility] @ [phone]. Confirmed update w/Saray [employer] [facility]. LING Chau
[2019-01-12] MEDS: fenofibrate 145mg tablet PO SCH (08:47)
[2019-01-12] MEDS: glimepiride 1 MG tablet PO SCH (08:47)
[2019-01-12] MEDS: lactobacillus rhamnosus 10,000 MMU CELLS/CAPSULE PO SCH ×2 (08:47→20:59)
[2019-01-12] MEDS: losartan 50mg tablet PO SCH (08:47)
[2019-01-12] MEDS: docusate sod 100mg capsule PO SCH ×2 (08:47→20:59)
[2019-01-12] MEDS: ziprasidone 20mg capsule PO SCH (08:47)
--- NOTE | 2019-01-12 16:43 | NUR ---
NURSING PROGRESS NOTE: Legal hold: 5250 for GD. Report received from Ken RN with use of SBAR. Why they are here: Client was transferred from [facility] after presenting to [facility] behaving in a disorganized manner and making bizarre statements. The client was placed on a 5150 for GD. Client is homeless. It was reported that client has been off meds for three months. Assessment: What happened this shift: Patient is observed resting. She took her medication without issue this morning. She has lipstick applied to her lips, cheeks and extending across her forehead. She awakens for lunch and quietly eats with others. She does not attend group and is seen resting in her bed. After awhile she gets up and joins others to watch t.v. She tells this RN that she will be leaving tomorrow to stay at a homeless prison and after will return home. She states that she is excited about this plan. S/I, H/I: none reported A/VH: none reported Sleep: 5.75hrs NOC, rested during the day ADL's: Independent, with prompting. Group attendance: no Were meds taken: Yes Any med S/E: None reported, None observed MENTAL STATUS EXAM: Appearance: dressed appropriate, pink tone applied to cheeks, lips and roots of hair. Hair tipped in black Eye contact: occasional Behavior: quiet, friendly when approached and cooperative Speech: soft monotone, not conversational Mood: content, reports happiness Affect: Flat Thought process: Disorganized Cognition: A/O X 3. Insight: Poor Judgment: Poor PRN's used: none Therapeutic interventions: 1:1 therapeutic assessment, maintained safe therapeutic milieu, encouraged independent ADLs, provided active listening with positive feedback, provided medication education as needed, monitored for change in behavior and needed intervention. Q 15 min safety checks. Restraints/seclusion/emergency medication: N/A Justification of Continued Inpatient Treatment: Continued therapeutic support and medication management needed to provide stabilization, and prevent decompensation decreasing risk to patient for readmittance to in-patient unit. Client is unable to formulate a plan for food, clothing and prison.
[2019-01-12 19:55] VITALS: BP 110/60
[2019-01-12] MEDS: traZODone 50mg tablet PO SCH (20:59)
[2019-01-12] MEDS: risperiDONE 2mg tablet PO SCH (20:59)
--- NOTE | 2019-01-12 23:42 | NUR ---
NURSING PROGRESS NOTE: Legal hold: 5250 for GD. Report received from PADMINI [place]ton with use of SBAR. Why they are here: Client was transferred from [facility] after presenting to [facility] behaving in a disorganized manner and making bizarre statements. The client was placed on a 5150 for GD. Client is homeless. It was reported that client has been off meds for three months. Assessment: What happened this shift: Pt is asleep at change of shift. She wakes up and eats a snack. She is cooperative with assessment. She denies feeling suicidal. She denies any AH/VH. Pt is pleasant but flat. She is wearing a purple sweater with a yellow shift on overtop and lipstick on her lips, cheeks, and eyes. S/I, H/I: Denies A/VH: Denies Sleep: see sleep assessment notation ADL's: Independent, with prompting. Group attendance: No HS group this shift Were meds taken: Yes Any med S/E: None reported, None observed MENTAL STATUS EXAM: Appearance: disheveled, wears layers, lipstick all on lips, eyes, and cheeks. Eye contact: fair Behavior: occasionally walks the halls and watches TV in rec room Speech: flat, sparse Mood: congruent w/ affect Affect: Flat Thought process: Disorganized Cognition: A/O X 3. Insight: Poor Judgment: Poor PRN's used: Trazadone 100mg for sleep Therapeutic interventions: Provided 1:1 therapeutic communication and active listening, administered medicine w/education and monitored for side effects, encouraged attention to ADL's, Q 15 min monitoring for safety check, maintained therapeutic milieu. Restraints/seclusion/emergency medication: N/A. Justification of Continued Inpatient Treatment: Continued therapeutic support and medication management needed to provide stabilization, prevent decompensation, and decrease risk to patient and readmittance. Client is unable to formulate a plan for food, clothing and group home.
[2019-01-13 07:26] VITALS: BP 103/55
[2019-01-13] MEDS: losartan 50mg tablet PO SCH (08:01)
[2019-01-13] MEDS: lactobacillus rhamnosus 10,000 MMU CELLS/CAPSULE PO SCH (08:01)
[2019-01-13] MEDS: fenofibrate 145mg tablet PO SCH (08:01)
[2019-01-13] MEDS: glimepiride 1 MG tablet PO SCH (08:01)
[2019-01-13] MEDS: docusate sod 100mg capsule PO SCH (08:01)
--- NOTE | 2019-01-13 14:26 | NUR ---
NURSING DISCHARGE NOTE: Patient accompanied off unit by [employer] Manager at 1345, to be transported to. All valuables were with patient. RN provided verbal instructions for follow up med appointments and printed handout. Patients mood was good. She states she is very excited to be leaving, her affect is restricted with brightening. Patient has improved since admit. She is not under any acute physical or emotional distress. Nicotine replacement not applicable.
== END 2019-01-13 13:45 | disposition short-term general hospital (02) | DRG 885 ==
LOC: EEVIPCON 21:30 → ADULT MH 21:30
PROVIDERS: ADMIT Psychiatry & Neurology Psychiatry; ATTEND Psychiatry & Neurology Psychiatry
DX: F29 Unspecified psychosis not due to a substance or known physiological condition (principal); N39.0 Urinary tract infection, site not specified; E78.5 Hyperlipidemia, unspecified; F17.210 Nicotine dependence, cigarettes, uncomplicated; Z60.2 Problems related to living alone; I10 Essential (primary) hypertension; E11.9 Type 2 diabetes mellitus without complications; Z91.19 Patient's noncompliance with other medical treatment and regimen; Z88.2 Allergy status to sulfonamides; Z79.899 Other long term (current) drug therapy; Z79.84 Long term (current) use of oral hypoglycemic drugs
CPT/HCPCS: 36415; 80061; 82948; 83036